=== PATIENT | female | born 1990 | race Hispanic/Latino ===

== ENCOUNTER 2017-11-05 02:35 | Emergency (ER) | payer MEDICARE ==
[2017-11-05 02:48] VITALS: BP 142/87; PULSE 64; RESP 16; TEMP 98; O2SAT 99
--- NOTE | 2017-11-05 03:13 | ED PDOC ---
HPI: General Adult Time Seen by Provider: 11/05/17 02:38 Chief Complaint (Nursing): Female Genitourinary History Per: Patient Additional Complaint(s): Pt. states she was unable to straight cath herself. States the last time she was able to catheterize herself was at 2000 without any difficulty. Denies pain , vomiting, fever. Past Medical History Reviewed: Historical Data, Nursing Documentation, Vital Signs Vital Signs: Last Vital Signs Temp 98 F 11/05/17 02:44 Pulse 64 11/05/17 02:44 Resp 16 11/05/17 02:44 BP 142/87 11/05/17 02:44 Pulse Ox 99 11/05/17 04:19 - Medical History Other PMH: spina bifida - Surgical History Surgical History: Back Surgery - Family History Family History: States: No Known Family Hx - Allergies Allergies/Adverse Reactions: Allergies Allergy/AdvReac Type Severity Reaction Status Date / Time latex Allergy RASH Verified 11/05/17 02:43 Review of Systems ROS Statement: Except As Marked, All Systems Reviewed And Found Negative Physical Exam - Physical Exam Appears: Positive for: Well, Non-toxic, No Acute Distress Skin: Positive for: Normal Color, Warm. Negative for: Rash Eye Exam: Positive for: Normal appearance Gastrointestinal/Abdominal: Positive for: Normal Exam, Bowel Sounds, Soft, Other (suprapubic cystostomy). Negative for: Tenderness, Distended Back: Positive for: Normal Inspection. Negative for: L CVA Tenderness, R CVA Tenderness Neurologic/Psych: Positive for: Alert, Oriented - ECG O2 Sat by Pulse Oximetry: 99 - Progress ED Course And Treament: Pt. irrigated and was able to straight cath herself in ED and able to decompress bladder completely. Disposition - Clinical Impression Clinical Impression: Suprapubic catheter dysfunction - Patient ED Disposition Is Patient to be Admitted: No - Disposition Disposition: Routine/Home Disposition Time: 04:07 Condition: STABLE Instructions: How to Care for Your Suprapubic Catheter (ED) Forms: [employer] ([place])
== END 2017-11-05 04:14 | disposition home or self-care (01) ==
LOC: H.ER 02:35
DX: T83.090A Other mechanical complication of cystostomy catheter, initial encounter (principal)